=== PATIENT | male | born 1985 | race Caucasian/White ===

== ENCOUNTER 2018-10-02 17:16 | Emergency (ER) | payer SELFPAY ==
[~2018-10-02] VITALS: Ht 177.8 cm; Wt 86.2 kg
[2018-10-02 18:06] VITALS: BP_SYST 149
[2018-10-02 20:11] VITALS: BP_SYST 140
== END 2018-10-02 20:11 | disposition home or self-care (01) ==
LOC: SED 17:16
DX: H66.91 Otitis media, unspecified, right ear (principal); K21.9 Gastro-esophageal reflux disease without esophagitis; R03.0 Elevated blood-pressure reading, without diagnosis of hypertension; F17.210 Nicotine dependence, cigarettes, uncomplicated; Z71.6 Tobacco abuse counseling
CPT/HCPCS: 99283

== ENCOUNTER 2020-08-08 00:21 | Emergency (ER) | payer BC ==
[~2020-08-08] VITALS: Ht 177.8 cm; Wt 86.2 kg
[2020-08-08 00:29] VITALS: BP_SYST 161
[2020-08-08] MEDS ORDERED: INDO-12 PO (01:55)
[2020-08-08] MEDS ORDERED: DOXY100C2 PO (01:55)
[2020-08-08 02:10] VITALS: BP_SYST 161
[2020-08-08 02:29] LABS: BILIRUBIN,URINE NEGATIVE (NEGATIVE); BLOOD, URINE NEGATIVE (NEGATIVE); CLARITY/URINE CLEAR (CLEAR); COLOR,URINE YELLOW (YELLOW); GLUCOSE,URINE NEGATIVE (NEGATIVE); KETONES,URINE NEGATIVE (NEGATIVE); LEUKOCYTE ESTERASE ,URINE NEGATIVE (NEGATIVE); NITRITE, URINE NEGATIVE (NEGATIVE); PH,URINE 6.5 (5.0-8.0); PROTEIN URINE NEGATIVE (NEGATIVE); UROBILINOGEN,URINE 0.2 (0.2-1.0)
[2020-08-09 19:06] LABS: CHLAMYDIA TRACHOMATIS NAA Negative (Negative); NEISSERIA GONORRHOEAE NAA Negative (Negative)
== END 2020-08-08 02:09 | disposition home or self-care (01) ==
LOC: SED 00:21
DX: N45.1 Epididymitis (principal); K21.9 Gastro-esophageal reflux disease without esophagitis; Z79.899 Other long term (current) drug therapy
CPT/HCPCS: 81003; 87491; 87591; 99283